=== PATIENT | female | born 1995 | race Caucasian/White ===

== ENCOUNTER 2023-05-13 02:11 | Emergency (ER) | payer MEDICAID ==
[~2023-05-13] VITALS: Ht 162.6 cm; Wt 114.5 kg
[2023-05-13] MEDS: predniSONE 20 mg tablet PO ONE (02:47)
[2023-05-13] MEDS: ipratropium/albuterol 3ml nebule NEB ONE (02:51)
[2023-05-13 02:54] VITALS: PULSE 92; RESP 20; O2SAT 98
[2023-05-13 02:58] VITALS: PULSE 93; RESP 18; O2SAT 99
[2023-05-13] MEDS ORDERED: ALBU18HF2 IH (03:24)
[2023-05-13] MEDS ORDERED: DEXT15LI3 PO (03:24)
[2023-05-13 03:30] VITALS: BP 132/78; PULSE 93; RESP 16; TEMP 98; O2SAT 98
== END 2023-05-13 03:33 | disposition home or self-care (01) ==
LOC: ER 02:12
DX: J45.901 Unspecified asthma with (acute) exacerbation (principal); Z88.0 Allergy status to penicillin; Z79.899 Other long term (current) drug therapy
CPT/HCPCS: 71045; 93005; 94640; 99283; J7512; 94760

== ENCOUNTER 2023-08-03 00:59 | Emergency (ER) | payer BC, MEDICAID ==
[~2023-08-03] VITALS: Ht 162.6 cm; Wt 114.0 kg
[~2023-08-03 00:59] MED LIST: ALBU18HF2 IH; DEXT15LI31 PO
[2023-08-03 01:02] VITALS: TEMP 98.5
[2023-08-03 01:28] LABS: BASOPHILS # (AUTO) 0.1 X10'3 (0-0.2); BASOPHILS % (AUTO) 0.4 % (0-1); EOSINOPHILS # (AUTO) 0.1 X10'3 (0-0.9); EOSINOPHILS % (AUTO) 0.4 % (0-6); HEMOGLOBIN 15.1 g/dl (12.0-16.0); LYMPHOCYTES # (AUTO) 1.5 X10'3 (1.1-4.8); LYMPHOCYTES % (AUTO) 10.3 % (21-51); MEAN CORPUSCULAR HEMOGLOBIN 27.9 PG (27.0-31.0); MEAN CORPUSCULAR HGB CONC 34.3 g/dL (33.0-36.5); MEAN CORPUSCULAR VOLUME 81.4 FL (78-98); MONOCYTES # (AUTO) 0.9 X10'3 (0-0.9); MONOCYTES % (AUTO) 5.9 % (2-12); PLATELET COUNT 271 X10'3 (140-440); RED CELL DISTRIBUTION WIDTH 12.9 % (11.5-14.5); WHITE BLOOD COUNT 14.5 X10'3 (4.5-11.0)
[2023-08-03 01:39] LABS: URINE HCG NEGATIVE (NEG)
[2023-08-03 01:40] LABS: ALANINE AMINOTRANSFERASE 33 U/L (12-78); ALBUMIN 3.6 G/DL (3.4-5.0); ALBUMIN/GLOBULIN RATIO 0.9 (1.1-1.5); ALKALINE PHOSPHATASE 34 IU/L (46-116); ANION GAP 11 (8-16); ASPARTATE AMINO TRANSFERASE 14 U/L (10-37); BILIRUBIN,TOTAL 0.6 MG/DL (0.1-1.0); BLOOD UREA NITROGEN 22 MG/DL (7-18); BUN/CREATININE RATIO 26.2 (10.0-20.0); CALCIUM 9.1 MG/DL (8.5-10.1); CHLORIDE 104 MMOL/L (99-107); CREATININE 0.84 MG/DL (0.40-0.90); GLUCOSE 148 MG/DL (70-104); LIPASE 40 U/L (16-77); POTASSIUM 3.6 MMOL/L (3.5-5.1); SODIUM 140 MMOL/L (135-145); TOTAL CARBON DIOXIDE 25.2 MMOL/L (24-32); TOTAL PROTEIN 7.7 G/DL (6.4-8.2); eCRCL 85 ML/MIN; eGFR 80 ML/MIN
[2023-08-03 01:47] LABS: BILIRUBIN,URINE NEGATIVE (Neg); CLARITY,URINE SLIGHTLY CLOUDY (Clear); COLOR,URINE YELLOW (Yellow); GLUCOSE, URINE NEGATIVE (Neg); KETONES,URINE TRACE mg/dl (Neg); LEUKOCYTE ESTERASE ,URINE NEGATIVE (Neg); NITRITES, URINE NEGATIVE (Neg); OCCULT BLOOD,URINE NEGATIVE (Neg); PROTEIN,URINE NEGATIVE (Neg); UROBILINOGEN,URINE 0.2 E.U/dL (0.2-1.0)
[2023-08-03 01:51] LABS: UA COLLECTION TYPE CLN CATCH MIDSTREAM
[2023-08-03 01:57] LABS: AMORPHOUS URATES 1+; BACTERIA,URINE FEW /HPF (Neg); MUCUS STRANDS NONE SEEN /LPF (Neg); RBC,URINE NONE SEEN /HPF (0-2); SQUAMOUS EPITHELIAL CELL,UR FEW /LPF (FEW); WBC,URINE 0-4 /HPF (0-4)
[2023-08-03 04:00] VITALS: BP 147/69; RESP 16
[2023-08-03] MEDS: acetaminophen 325mg tablet PO ONE (04:04)
[2023-08-03] MEDS: loperamide 2mg capsule PO ONE (04:04)
[2023-08-03] MEDS: ringers solution, lacted 1,000 ML IV ONE (04:26)
[2023-08-03] MEDS: ondansetron/PF 4mg/2ml inj IV ONE (04:26)
[2023-08-03 04:30] VITALS: PULSE 81; O2SAT 92
[2023-08-03] MEDS ORDERED: ONDA4TAB12 PO (04:58)
== END 2023-08-03 05:14 | disposition home or self-care (01) ==
LOC: ER 00:59
DX: K52.89 Other specified noninfective gastroenteritis and colitis (principal); R11.10 Vomiting, unspecified; J45.909 Unspecified asthma, uncomplicated; Z79.899 Other long term (current) drug therapy; Z88.0 Allergy status to penicillin
CPT/HCPCS: 36415; 80053; 81001; 81025; 83690; 85025; 96361; 96374; 99285; J2405; J7120

== ENCOUNTER 2024-07-06 14:49 | Emergency (ER) | payer SELFPAY ==
[~2024-07-06] VITALS: Ht 162.6 cm; Wt 110.0 kg
[~2024-07-06 14:49] MED LIST changes: +ONDA-243 PO
--- NOTE | 2024-07-06 15:03 | ELECTROCARDIOGRAPH REPORT ---
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 Yoli Ham Measurements Intervals [place] Rate: 84 P: 41 IL: 170 QRS: 9 QRSD: 101 T: 20 QT: 369 QTc: 437 Interpretive Statements Sinus rhythm Electronically Signed On 07-06-2024 16:17:[address] Yoli Ham Please click the below link to view image of tracing.
[2024-07-06 15:43] LABS: BASOPHILS % (AUTO) 0.2 % (0-1); EOSINOPHILS % (AUTO) 0.4 % (0-6); HEMATOCRIT 40.7 % (35.0-45.0); HEMOGLOBIN 13.8 g/dl (12.0-16.0); LYMPHOCYTES # (AUTO) 1.2 X10'3 (1.1-4.8); LYMPHOCYTES % (AUTO) 10.9 % (21-51); MEAN CORPUSCULAR HEMOGLOBIN 27.5 PG (27.0-31.0); MEAN CORPUSCULAR HGB CONC 33.9 g/dL (33.0-36.5); MEAN CORPUSCULAR VOLUME 81.1 FL (78-98); MEAN PLATELET VOLUME 7.2 FL (7.4-10.4); MONOCYTES # (AUTO) 0.5 X10'3 (0-0.9); MONOCYTES % (AUTO) 4.3 % (2-12); NEUTROPHILS # (AUTO) 9.6 X10'3 (1.8-7.7); NEUTROPHILS % (AUTO) 84.2 % (42-75); PLATELET COUNT 241 X10'3 (140-440); RED BLOOD COUNT 5.02 X10'6 (4.20-5.60); RED CELL DISTRIBUTION WIDTH 13.6 % (11.5-14.5); WHITE BLOOD COUNT 11.4 X10'3 (4.5-11.0)
[2024-07-06 15:58] LABS: ALANINE AMINOTRANSFERASE 59 U/L (12-78); ALBUMIN 3.5 G/DL (3.4-5.0); ALBUMIN/GLOBULIN RATIO 1.1 (1.1-1.5); ALKALINE PHOSPHATASE 54 IU/L (46-116); ANION GAP 9 (8-16); ASPARTATE AMINO TRANSFERASE 78 U/L (10-37); BILIRUBIN,TOTAL 1.3 MG/DL (0.1-1.0); BLOOD UREA NITROGEN 20 MG/DL (7-18); BUN/CREATININE RATIO 21.3 (10.0-20.0); CALCIUM 8.2 MG/DL (8.5-10.1); CHLORIDE 104 MMOL/L (99-107); CREATININE 0.94 MG/DL (0.40-0.90); GLUCOSE 118 MG/DL (70-104); LIPASE 48 U/L (16-77); POTASSIUM 3.4 MMOL/L (3.5-5.1); SODIUM 137 MMOL/L (135-145); TOTAL CARBON DIOXIDE 23.8 MMOL/L (24-32); TOTAL PROTEIN 6.6 G/DL (6.4-8.2); eCRCL 75 ML/MIN; eGFR 69 ML/MIN
[2024-07-06 17:20] LABS: BILIRUBIN,URINE SMALL (Neg); CLARITY,URINE TURBID (Clear); COLOR,URINE AMBER (Yellow); GLUCOSE, URINE NEGATIVE (Neg); KETONES,URINE NEGATIVE (Neg); LEUKOCYTE ESTERASE ,URINE NEGATIVE (Neg); OCCULT BLOOD,URINE NEGATIVE (Neg); PH,URINE 5.5 (4.8-8.0); PROTEIN,URINE TRACE mg/dl (Neg); URINE HCG NEGATIVE (NEG)
[2024-07-06 17:23] LABS: NITRITES, URINE NEGATIVE (Neg); UA COLLECTION TYPE VOIDED
[2024-07-06 17:30] LABS: BACTERIA,URINE 1+ /HPF (Neg); MUCUS STRANDS NONE SEEN /LPF (Neg); RBC,URINE NONE SEEN /HPF (0-2); SQUAMOUS EPITHELIAL CELL,UR MODERATE /LPF (FEW); WBC,URINE 0-4 /HPF (0-4)
[2024-07-06 17:31] LABS: AMORPHOUS URATES 3+
[2024-07-06 18:42] VITALS: BP 127/75; PULSE 91; TEMP 98.3; O2SAT 100
--- NOTE | 2024-07-06 18:59 | Physician Documentation ---
History of Present Illness ~ General Chief Complaint: Multiple Medical Complaints Stated Complaint: DIFFICULTY BREATHING Time Seen by MD: 15:59 Source: patient Mode of Arrival: POV Exam Limitations: no limitations History of Present Illness Initial Comments 29-year-old female who is here due to upper abdominal pain as well as difficulty breathing, nausea and vomiting and diarrhea. Patient states her 1st symptom was abdominal pain with nausea vomiting and diarrhea and following this she experienced shortness of breath. She ended up going home from work today around 30 due to her symptoms and when she got home a few hours later she has been in his shortness of breath in his eyelid to call 911. Pre arrival treatment with Imodium and Tylenol p.m.. Patient states diarrhea brown in color no blood. No fever, chills. History of cholecystectomy no other abdominal surgeries. Abdominal pain 4/10 in severity. Prior to coming to ER abdominal pain was "20/10." No prearrival treatment, pain just gradually improved on it's own. SOB that patient reported experienced has resolved, no pre-arrival treatment. Medication Reconciliation Allergies: Coded Allergies: Penicillins (Verified Allergy, Unknown, 01/10/24) Scheduled Albuterol Sulfate (Ventolin Hfa), 2 PUFFS IH 5XD Dextromethorphan HBr (Tussin Cough), 2.5 ML PO Q12H Scheduled PRN ONDANSETRON ODT 4mg tablet (Ondansetron Odt), 1 TAB PO Q6H PRN PRN for nausea/vomiting Past Medical History Past Medical History: Asthma Past Surgical History: no surgical history Alcohol Use: None Drug Use: none Review of Systems All Other Systems at this time: Reviewed and Negative Physical Exam Physical Exam Vital Signs: Temperature: 98.3, Source: Oral, Heart Rate: 91, Respiratory Rate: 16, BP: 127/75, Pulse Oximetry: 100, Weight: 110.000 Oxygen Flow Rate: 0 Physical Exam GENERAL: Alert, no acute distress. HEENT: NCAT, EOMI, PERRL, normal oropharynx, moist oral mucosa. NECK: Supple, trachea midline. CARDIAC: Regular rate and rhythm, no murmurs, rubs, or gallops. Equal distal pulses. No lower extremity edema, cap refill less than 2 seconds. RESPIRATORY: Equal breath sounds, clear to auscultation bilaterally, no respiratory distress. GASTROINTESTINAL: Non distended, soft, GENERALIZED TTP, No guarding or rebound. MUSCULOSKELETAL: Normal range of motion, nontender, no swelling. NEUROLOGICAL: Awake, alert, and oriented x 3. SKIN: Warm/dry, no pallor, no rash. PSYCH: Alert and appropriate. Affect congruent with mood. Speech is clear. Good eye contact. Progress Results/Orders Results/Orders Orders - SHWETA RITTER PA Ct Abdomen Pelvis (07/06/24 17:52) Completed Orders - SHWEAT RITTER PA Ct Abdomen Pelvis (07/06/24 17:52) Vital Signs 07/06/24 07/06/24 14:56 18:42 Temp 98.6 98.3 Pulse 89 91 Resp 16 16 B/P (MAP) 137/78 127/75 (92) Pulse Ox 99 100 O2 Flow Rate 0 0 Laboratory Tests Test 07/06/24 15:28 07/06/24 16:19 White Blood Count 11.4 H Red Blood Count 5.02 Hemoglobin 13.8 Hematocrit 40.7 Mean Corpuscular Volume 81.1 Mean Corpuscular Hemoglobin 27.5 Mean Corpuscular Hemoglobin Concent 33.9 Red Cell Distribution Width 13.6 Platelet Count 241 Mean Platelet Volume 7.2 L Neutrophils (%) (Auto) 84.2 H Lymphocytes (%) (Auto) 10.9 L Monocytes (%) (Auto) 4.3 Eosinophils (%) (Auto) 0.4 Basophils (%) (Auto) 0.2 Neutrophils # (Auto) 9.6 H Lymphocytes # (Auto) 1.2 Monocytes # (Auto) 0.5 Eosinophils # (Auto) 0.0 Basophils # (Auto) 0.0 CBC Comment Sodium Level 137 Potassium Level 3.4 L Chloride Level 104 Carbon Dioxide Level 23.8 L Anion Gap 9 Blood Urea Nitrogen 20 H Creatinine 0.94 H Estimated GFR/1.73 m2 69 BUN/Creatinine Ratio 21.3 H Glucose Level 118 H Calcium Level 8.2 L Total Bilirubin 1.3 H Aspartate Amino Transf (AST/SGOT) 78 H Alanine Aminotransferase (ALT/SGPT) 59 Alkaline Phosphatase 54 Total Protein 6.6 Albumin 3.5 Globulin 3.1 Albumin/Globulin Ratio 1.1 Lipase 48 Chemistry Comments Urine Specimen Description Voided Urine Color Mimi Urine Clarity Turbid Urine pH 5.5 Urine Specific [place] >=1.030 Urine Protein Trace Urine Glucose (UA) Negative Urine Ketones Negative Urine Occult Blood Negative Urine Nitrite Negative Urine Bilirubin Small Urine Urobilinogen 4.0 H Urine Leukocyte Esterase Negative Urine RBC None seen Urine WBC 0-4 Urine Squamous Epithelial Cells Moderate Urine Amorphous Urates 3+ Urine Bacteria 1+ Urine Mucus None seen Urine Culture Indicated Not ind Volume Urine Centrifuged 8 ml Urine HCG, Qualitative Negative Urine Comment Low volume Medical Decision Making Differential Diagnosis Patient did not have evidence of a bowel obstruction, she has already had a cholecystectomy, patient's pain was reproducible with pressure on the upper abdomen unlikely cardiac in nature also the fact that this started now with abdominal nausea vomiting and diarrhea. No episodes of vomiting or diarrhea during stay in ER. CT scan ordered due to slightly elevated WBC. CT scan findings consistent with ileitis and proctocolitis Indication: upper abdominal pain Comparison Study: None Technique: Axial images were obtained and reformatted in coronal and sagittal planes. All CT scans at this medical facility are performed using dose modulation techniques as appropriate to a performed exam including the following: Automated exposure control was utilized; adjustment of the MA and/or KV according to patient size; and use of iterative reconstruction technique. CT Dose: CTDI volume is 35 mGy. Dose-length product is 1943 mGy*cm FINDINGS: Lower Chest: Unremarkable. Hepatobiliary: Gallbladder is surgically absent. Spleen: Mild splenomegaly, 13.7 cm in craniocaudal. Pancreas: Unremarkable. Adrenal Glands: Unremarkable. tract: The kidneys are normal in size bilaterally without hydronephrosis or nephrolithiasis. The urinary bladder is unremarkable. GI tract: The stomach is grossly normal in appearance. No evidence of small bowel obstruction. Mild circumferential mural thickening of the ascending colon, proximal and mid transverse colon, descending colon, sigmoid colon and rectum noted. Mild circumferential mural thickening of the terminal ileum noted. The a ppendix is normal. Lymphatics: Small scattered mesenteric lymph nodes are seen measuring up to 0.8 cm in short axis. No retroperitoneal or pelvic lymphadenopathy. Vasculature: The abdominal aorta is normal in caliber. Pelvic Organs: Unremarkable Bones/soft tissues: No acute osseous abnormality. A small fat-containing umbilical hernia noted. Other: None. IMPRESSION: 1. Findings suggestive of proctocolitis and terminal ileitis. Inflammatory bowel disease such as crohn's can not be ruled out. The differential diagnosis includes infectious enterocolitis. Recommend clinical and biochemical correlation. 2. Mild splenomegaly. 3. Status post cholecystectomy. Departure Time of Disposition: 18:58 Disposition: 01 HOME / SELF CARE / HOMELESS Impression: Primary Impression: Nausea & vomiting Qualified Codes: R11.2 - Nausea with vomiting, unspecified Additional Impressions: Diarrhea Qualified Codes: R19.7 - Diarrhea, unspecified Ileitis Proctocolitis Abdominal pain Qualified Codes: R10.84 - Generalized abdominal pain Condition: Stable Discharge Instructions: Abdominal Pain, Adult, [id number] Additional Instructions: RX SENT FOR FLAGYL DUE TO ANTI INFLAMMATORY PROPERTIES WELL ANTIBACTERIAL PROPERTIES F/U WITH PCP FOR OUTPATIENT COLONOSCOPY Indication: upper abdominal pain Comparison Study: None Technique: Axial images were obtained and reformatted in coronal and sagittal planes. All CT scans at this medical facility are performed using dose modulation techniques as appropriate to a performed exam including the following: Automated exposure control was utilized; adjustment of the MA and/or KV according to patient size; and use of iterative reconstruction technique. CT Dose: CTDI volume is 35 mGy. Dose-length product is 1943 mGy*cm FINDINGS: Lower Chest: Unremarkable. Hepatobiliary: Gallbladder is surgically absent. Spleen: Mild splenomegaly, 13.7 cm in craniocaudal. Pancreas: Unremarkable. Adrenal Glands: Unremarkable. tract: The kidneys are normal in size bilaterally without hydronephrosis or nephrolithiasis. The urinary bladder is unremarkable. GI tract: The stomach is grossly normal in appearance. No evidence of small bowel obstruction. Mild circumferential mural thickening of the ascending colon, proximal and mid transverse colon, descending colon, sigmoid colon and rectum noted. Mild circumferential mural thickening of the terminal ileum noted. The appendix is normal. Lymphatics: Small scattered mesenteric lymph nodes are seen measuring up to 0.8 cm in short axis. No retroperitoneal or pelvic lymphadenopathy. Vasculature: The abdominal aorta is normal in caliber. Pelvic Organs: Unremarkable Bones/soft tissues: No acute osseous abnormality. A small fat-containing umbilical hernia noted. Other: None. IMPRESSION: 1. Findings suggestive of proctocolitis and terminal ileitis. Inflammatory bowel disease such as crohn's can not be ruled out. The differential diagnosis includes infectious enterocolitis. Recommend clinical and biochemical correlation. 2. Mild splenomegaly. 3. Status post cholecystectomy. Referrals: NO PRIMARY CARE PROVIDER (PCP) Prescriptions Metronidazole* (Flagyl*) 500 Mg Tablet 1 TAB PO Q8H for 10 Days, #30 TAB Prov: SHWETA RITTER 07/06/24 Education Educated: Patient Educated regarding: diagnosis, treatment, need for follow up Signature Scribe Signature: x Attestation: SHWETA Cheng July 06, 2024 18:59
--- NOTE | 2024-07-06 19:18 | RADIOLOGY REPORT ---
Procedure: CT CT ABDOMEN PELVIS 07/06/2024 05:48 PM Indication: upper abdominal pain Comparison Study: None Technique: Axial images were obtained and reformatted in coronal and sagittal planes. All CT scans at this medical facility are performed using dose modulation techniques as appropriate to a performed e xam including the following: Automated exposure control was utilized; adjustment of the MA and/or KV according to patient size; and use of iterative reconstruction technique. CT Dose: CTDI volume is 35 mGy. Dose-length product is 1943 mGy*cm FINDINGS: Lower Chest: Unremarkable. Hepatobiliary: Gallbladder is surgically absent. Spleen: Mild splenomegaly, 13.7 cm in craniocaudal. Pancreas: Unremarkable. Adrenal Glands: Unremarkable. tract: The kidneys are normal in size bilaterally without hydronephrosis or nephrolithiasis. The u rinary bladder is unremarkable. GI tract: The stomach is grossly normal in appearance. No evidence of small bowel obstruction. Mild c ircumferential mural thickening of the ascending colon, proximal and mid transverse colon, descending colon, sigmoid colon and rectum noted. Mild circumferential mural thickening of the terminal ileum n oted. The appendix is normal. Lymphatics: Small scattered mesenteric lymph nodes are seen measuring up to 0.8 cm in short axis. No retroperitoneal or pelvic lymphadenopathy. Vasculature: The abdominal aorta is normal in caliber. Pelvic Organs: Unremarkable Bones/soft tissues: No acute osseous abnormality. A small fat-containing umbilical hernia noted. Other: None. IMPRESSION: 1. Findings suggestive of proctocolitis and terminal ileitis. Inflammatory bowel disease such as croh n's can not be ruled out. The differential diagnosis includes infectious enterocolitis. Recommend cl inical and biochemical correlation. 2. Mild splenomegaly. 3. Status post cholecystectomy.
[2024-07-06] MEDS ORDERED: METR-159 PO (19:41)
[2024-07-06 20:00] VITALS: RESP 18
[2024-07-06] MEDS: metroNIDAZOLE 500mg tablet PO STA (20:07)
== END 2024-07-06 20:15 | disposition home or self-care (01) ==
LOC: ER 14:49
DX: K52.9 Noninfective gastroenteritis and colitis, unspecified (principal); K52.29 Other allergic and dietetic gastroenteritis and colitis; J45.909 Unspecified asthma, uncomplicated; Z88.0 Allergy status to penicillin; Z90.49 Acquired absence of other specified parts of digestive tract; Z79.899 Other long term (current) drug therapy
CPT/HCPCS: 36415; 74176; 80053; 81001; 81025; 83690; 85025; 93005; 99284

== ENCOUNTER 2024-12-30 13:29 | Emergency (ER) | payer BC, OTHER ==
[~2024-12-30] VITALS: Ht 160 cm; Wt 106.5 kg
[2024-12-30 13:41] VITALS: BP 114/66; PULSE 80; RESP 16; TEMP 98.4; O2SAT 98
[2024-12-30] MEDS ORDERED: LIDO700A47 TOP (14:11)
--- NOTE | 2024-12-30 14:11 | Physician Documentation ---
History of Present Illness ~ Chief Complaint: Rib pain Stated Complaint: COMPLICATIONS Time Seen by MD: 13:49 Source: patient Mode of Arrival: POV Exam Limitations: no limitations HPI 29-year-old female approximately 16 weeks high-risk has had a cough for several weeks was evaluated with chest x-ray which was negative but started to have chest wall pain on the left side and then this morning felt a pop and has rib pain with movement deep breathing and coughing. No fevers or other associated symptoms Tetanus within 5 Years?: Yes Allergies: Coded Allergies: Penicillins (Verified Allergy, Unknown, 12/30/24) Active Prescriptions See Medication Reconciliation Form. Medication Reconciliation Scheduled Albuterol Sulfate (Ventolin Hfa), 2 PUFFS IH 5XD Dextromethorphan HBr (Tussin Cough), 2.5 ML PO Q12H Scheduled PRN ONDANSETRON ODT 4mg tablet (Ondansetron Odt), 1 TAB PO Q6H PRN PRN for kelli sea/vomiting Past Medical History Past Medical History: Asthma Past Surgical History: no surgical history Last Menstrual Period: Sep 08, 2024 Alcohol Use: None Drug Use: none Lives In: Home Occupation: unemployed Review of Systems All Other Systems at this time: Reviewed and Negative Respiratory: Reports: see HPI Physical Exam Vital Signs: RN Vital Signs have been reviewed: Yes, Temperature: 98.4, Source: Oral, Heart Rate: 80, Respiratory Rate: 16, BP: 114/66, Pulse Oximetry: 98, Weight: 106.500 Oxygen Flow Rate: 0 Physical Exam General: Alert, no apparent distress. HEENT: PERRL, EOMI, no injection, moist mucous membranes. Neck: Full range of motion. Respiratory: Lungs clear, no respiratory distress. Chest: No accessory muscle use. Rib tenderness to the left lower ribs no obvious deformities Cardiovascular: Regular rate and rhythm, no murmurs. Extremities: Normal range of motion, no deformity. Neurologic: Oriented x4. Psychiatric: Normal mood and affect. Skin: Normal color, warm and dry. No edema, no ecchymosis. Progress Results/Orders Results/Orders Vital Signs 12/30/24 13:41 Temp 98.4 Pulse 80 Resp 16 B/P (MAP) 114/66 Pulse Ox 98 O2 Flow Rate 0 Medical Decision Making Additional information obtaine: N/A Findings Rib pain lung sounds clear no x-ray per patient request due to . We will prescribe lidocaine patches she will follow up with Ob Differential Dx:Considerations: Include: Chest wall contusion, Renal contusion, Other Departure Time of Disposition: 14:09 Disposition: 01 HOME / SELF CARE / HOMELESS Impression: Primary Impression: Rib pain Condition: Stable Discharge Instructions: Rib Contusion Additional Instructions: Use Tylenol and lidocaine patches and follow up with Ob Referrals: NO PRIMARY CARE PROVIDER (PCP) Prescriptions Lidocaine (Lidocaine) 5 % Adh..patch 1 PATCH TOP DAILY for 30 Days, #30 PATCH 0 Refills Prov: BRIE ADKINS NP 12/30/24 Education Educated: Patient Educated regarding: diagnosis, treatment, need for follow up Signature Scribe Signature: No scribe Attestation: The note accurately reflects work and decisions made by me.Brie MCKEON 12/30/24 14:11 BRIE ADKINS NP Dec 30, 2024 14:11
== END 2024-12-30 14:27 | disposition home or self-care (01) ==
LOC: ER 13:29
DX: O26.892 Other specified pregnancy related conditions, second trimester (principal); O99.512 Diseases of the respiratory system complicating pregnancy, second trimester; J45.909 Unspecified asthma, uncomplicated; Z3A.16 16 weeks gestation of pregnancy; Z88.0 Allergy status to penicillin
CPT/HCPCS: 99283